=== PATIENT | female | born 1975 | race Asian ===

== ENCOUNTER → 2019-01-30 | Emergency (ER) | payer SELFPAY, OTHER ==
[2019-01-30] MEDS: LIDOCAINE 1% (MDV) 20 ML INJ SC (09:38)
[2019-01-30] MEDS: IBUPROFEN 800 MG TAB PO (09:40)
[2019-01-30] MEDS: DIPHTH/TET/ACEL PERTUSS (ADULT) 0.5 ML VIAL IM* (09:41)
[2019-01-30] MEDS: BACITRACIN 0.9 GM OINT TOP (09:41)
[2019-01-30] MEDS: BACITRACIN 0.5%/ZINC 28.35 GM OINT TOP (09:46)
== END | disposition home or self-care (01) ==
LOC: FTE 08:59
DX: S61.012A Laceration without foreign body of left thumb without damage to nail, initial encounter (principal); W26.8XXA Contact with other sharp object(s), not elsewhere classified, initial encounter; Y92.9 Unspecified place or not applicable; Z23 Encounter for immunization
CPT/HCPCS: 12005; 81025; 90471; 90715; 99283-25

== ENCOUNTER 2019-02-02 07:24 | Emergency (ER) | payer SELFPAY | END 2019-02-02 08:30 | disposition home or self-care (01) | LOC: FTE 08:30 | DX: Z48.01 Encounter for change or removal of surgical wound dressing (principal) | CPT/HCPCS: 99281 ==

== ENCOUNTER 2019-02-06 10:35 | Emergency (ER) | payer SELFPAY | END 2019-02-06 11:42 | disposition home or self-care (01) | LOC: FTE 11:42 | DX: Z48.02 Encounter for removal of sutures (principal) | CPT/HCPCS: 99281 ==